=== PATIENT | male | born 1965 | race Caucasian/White ===

== ENCOUNTER 2019-02-22 02:58 | Inpatient (IN) | payer OTHER ==
[~2019-02-22] VITALS: Ht 170.2 cm; Wt 74.8 kg
--- NOTE | 2019-02-22 03:19 | NUR ---
PT BIB [facility] TO ED WITH PT C/O FEELING GENERALIZED WEAKNESS AND LOW BP. PER MEDICS, PT HAD RECENT 5UNITS LOSS OF BLOOD FROM ESOPHAGEAL VARICES AND WAS REPLACED WITH 1 UNIT AT PARSIPPANY. PER MEDICS, PT BP WAS IN 60'S AND WITH 200ML NS, INCREASED TO SYSTOLIC IN THE 70'S. PER MEDICS, PT ALSO STATING TO HAVING SHARP CHEST PAIN TO LEFT LOWER CHEST. PT A AND O X4, NO ACUTE DISTRESS NOTED, PT STATES TO 9/10 CHEST PAIN THAT BEGAN EN ROUTE IN AMBULANCE. PER MEDICS, 12 LEAD WAS NEGATIVE.
--- NOTE | 2019-02-22 03:48 | NUR ---
PER PT , PT IS STATING HE IS BEGINNING TO FEEL "BLOOD IN HIS SYSTEM" LIKE HE IS BLEEDING.
[2019-02-22 03:59] LABS: CALCIUM 7.4 mg/dL (8.5-10.1); CARBON DIOXIDE 21.4 mmol/L (21-32); CHLORIDE SERUM 108 mmol/L (98-107); CREATININE SERUM 1.2 mg/dL (0.7-1.3); GFR1 > 60 mL/min; GLUCOSE SERUM 224 mg/dL (74-106); POTASSIUM SERUM 4.2 mmol/L (3.5-5.1); SODIUM SERUM 140 mmol/L (136-145)
[2019-02-22 04:03] LABS: PLATELET COUNT 105 x10^3mcL (130-400); RED CELL DISTRIBUTION WIDTH 18.2 % (11.5-14.5)
[2019-02-22 04:04] LABS: ALKALINE PHOSPHATASE 218 U/L (46-116); ALT/SGPT 31 U/L (16-63); AST/SGOT 39 U/L (15-37); BILIRUBIN TOTAL 0.7 mg/dL (0.20-1.00)
[2019-02-22 04:07] LABS: ALBUMIN 2.2 g/dL (3.4-5.0); TOTAL PROTEIN, SERUM 5.1 g/dL (6.4-8.2)
--- NOTE | 2019-02-22 04:15 | NUR ---
STARTED EMERGENCY BLOOD TRANSFUION WITH O-NEG BLOOD. PER DR. ALMONTE, INFUSED OVER 1 HOUR SINCE PT BP HAS IMPROVED. PT REMAINS PALE AND DRY AT THIS TIME.
--- NOTE | 2019-02-22 04:43 | NUR ---
PT IS MORE PINK IN SKIN COLOR AT THIS TIME, DENIES HAVING CHEST PAIN. PT CONTINUES TO SPEAK IN CLEAR SENTENCES. AT PT SIDE.
--- NOTE | 2019-02-22 04:59 | NUR ---
PER , PT HAD TESTOSTERONE INJECTION AT 1PM YESTERDAY AND IS INSULIN DEPENDENT DIABETIC.
[2019-02-22 05:13] LABS: ovalocyte/elliptocyte 1+; rbc morphology (normal/abnorm) ABNORMAL (NORMAL)
--- NOTE | 2019-02-22 05:49 | NUR ---
PT PROVIDED WITH BED PEREIRA PER PT REQUEST. DARK RED BLOOD NOTED IN BED PEREIRA, APPROX 20-30CC IN BED PEREIRA.
[2019-02-22] MEDS ORDERED: MASON NATURAL1000 IU (05:52)
[2019-02-22] MEDS ORDERED: CLARITIN D (05:52)
[2019-02-22] MEDS ORDERED: PHARMASSURE FO0.4 MG (05:52)
[2019-02-22] MEDS ORDERED: ALLEGRA ALLERG180 M1 (05:52)
[2019-02-22] MEDS ORDERED: PROTONIX20 MG (05:52)
[2019-02-22 06:00] LABS: CHOLESTEROL/HDL RATIO 4.7; MAGNESIUM 1.6 mg/dL (1.8-2.4)
--- NOTE | 2019-02-22 06:01 | NUR ---
PER MT, NO ICU BED AVAIL UNTIL AFTER 7AM.
[2019-02-22 06:06] LABS: T3 TOTAL 1.39 ng/mL
[2019-02-22 06:13] LABS: FREE T4 1.26 ng/dL (0.76-1.46); FREE THYROXINE INDEX 2.7 ug/dL (1.4-4.5); T4(THYROXINE) 7.3 ug/dL (4.7-13.3)
--- NOTE | 2019-02-22 06:43 | NUR ---
PT RESTING IN POSITION OF COMFORT, NO ACUTE DISTRESS NOTED, PT SKIN REMAINS PINK IN COLOR. PT STARTED ON SANDOSTATIN DRIP PER ORDER.
--- NOTE | 2019-02-22 07:24 | NUR ---
REPORT GIVEN TO RAOUL POWELL TO ASSUME CARE OF PT.
--- NOTE | 2019-02-22 07:38 | NUR ---
PT ADMITTED AT THIS TIME FROM ED. PT AWAKE, ALERT, ORIENTED X 4. ABLE TO COMMUNICATE NEEDS AND FOLLOW COMMANDS. PT DENIES PAIN AT THIS TIME, NO S/S DISTRESS NOTED. OF PT AT BEDSIDE. VS: T 97.5, HR 93, BP 93/36 (57), RR 12, SPO2 99 ON RA. BP LOW, BUT STABLE AT THIS TIME. PT SCHEDULED TO HAVE EGD THIS AM. WILL CONTINUE TO MONITOR.
--- NOTE | 2019-02-22 07:39 | NUR ---
PT TRANSFERRED TO ICU BED 3 VIA GURNEY WITH SANDOSTATIN INFUSING. PT A&OX4,NO ACUTE DISTRESS NOTED, RESP EVEN AND UNLABORED, TRANSFERRED WITH RN JENNA AND EMT PANCHO AT PT SIDE.
--- NOTE | 2019-02-22 08:46 | NUR ---
TIMEOUT FOR EGD COMPLETED AT BEDSIDE BY JACKLYN SILVEIRA. PT VITAL SIGNS STABLE, CONSENT SIGNED. EGD TO BE COMPLETED BY DR. CID. WILL CONTINUE TO MONITOR PT.
--- NOTE | 2019-02-22 09:00 | NUR ---
PT TOLERATING EGD WELL.
[2019-02-22 09:51] LABS: BASOPHIL % 0.5 % (0-2)
--- NOTE | 2019-02-22 10:30 | NUR ---
PT TOLERATED EGD WELL, DROWSY AT THIS TIME. WILL CONTINUE TO MONITOR.
[2019-02-22 10:38] LABS: PLATELET COUNT 107 x10^3mcL (130-400)
--- NOTE | 2019-02-22 10:51 | NUR ---
DR. POE MADE AWARE OF CURRENT HGB 7.8 AND HCT 23; ORDERS TO HOLD OFF ON PENDING TWO UNITS AT THIS TIME. PRIMARY RN MADE AWARE.
[2019-02-22 11:15] VITALS: BP 99/36
[2019-02-22 12:31] VITALS: BP 106/48
[2019-02-22 12:49] LABS: BASOPHIL % 0.6 % (0-2); PLATELET COUNT 77 x10^3mcL (130-400); RED CELL DISTRIBUTION WIDTH 18.5 % (11.5-14.5)
--- NOTE | 2019-02-22 12:50 | NUR ---
LAB CALLED RE: MOST RECENT HGB 6.8 AND HCT 20. WILL NOTIFY
--- NOTE | 2019-02-22 12:57 | NUR ---
DR. POE NOTIFIED OF MOST RECENT HGB OF 6.8 AND HCT OF 20.
--- NOTE | 2019-02-22 13:40 | NUR ---
1 UNIT OF PRBC'S CHECKED WITH SECOND RN AT BEDSIDE AND TRANSFUSION INITIATED. PRE-TRANSFUSION VS: T 98.1, HR 91, BP 131/55, RR 19, O2 97. PT EDUCATED ON S/S TRANSFUSION REACTION AND ADVISED TO TELL RN IF S/S ARISE. WILL CONTINUE TO MONITOR PT FOR S/S TRANSFUSION RXN.
--- NOTE | 2019-02-22 13:55 | NUR ---
IV FLUID PAUSED AT THIS TIME, PRBC'S INFUSING.
[2019-02-22 15:40] VITALS: BP 108/52
--- NOTE | 2019-02-22 16:30 | NUR ---
PRBC TRANSFUSION COMPLETE. NO S/S TRANSFUSION REACTION. NS RESTARTED AT 100 ML/HR.
[2019-02-22] MEDS ORDERED: ROBAXIN500 MG PO (18:25)
[2019-02-22 18:31] LABS: microscopic required? NO
[2019-02-22 18:35] LABS: UA SPECIFIC GRAVITY 1.015 (1.005-1.035); urine erythrocyte NEGATIVE (NEGATIVE)
[2019-02-22 18:39] LABS: PLATELET COUNT 78 x10^3mcL (130-400)
[2019-02-22 19:00] LABS: AMPHETAMINE QUAL UR NONE DETECTED (See below)
--- NOTE | 2019-02-22 19:05 | NUR ---
RECEIVED REPORT FROM ANDRE SILVEIRA. ASSUMING ALL CARE
[2019-02-22 19:23] VITALS: BP 115/54
--- NOTE | 2019-02-22 19:31 | NUR ---
RECEIVED PT LAYING IN BED. PT IS A/OX4. SPEECH IS CLEAR. ABLE TO MAKE NEEDS KNOWN/FOLLOW COMMANDS. BREATHING IS E/U ON RA. LUNGS SOUND CLEAR BILAT. SYMMETRICAL CHEST EXPANSION NOTED. S1/S2 HEART SOUNDS AUSCULTATED. CHEST WALL EQUAL AND SYMMETRICAL. DENIES ANY CP. HR 92, NIBP 115/54 MAP 74. PALPABLE PULSES X4 EXTREMITIES. SKIN IS WARM AND DRY. NO EDEMA NOTED. RAC AND LFA IV IN PLACE WITH NO S/S OF INFILTRATION NOTED. NS INFUSING @ 100 ML/HR, SANDOSTATIN GTT INFUSING @ 25 ML/HR. ABD IS DISTENDED/NONTENDER TO PALPATION. BOWEL SOUNDS ACTIVE X4 QUADRANTS. PT HAD A SMALL SOFT DARK TARRY COLORED BM, PERICARE PROVIDED. PT VOIDS FREELY VIA URINAL. NO SCROTAL EDEMA/PENILE DISCHARGE NOTED. SKIN IS INTACT. PT ABLE TO REPOSITION SELF INDEPENDENTLY. PT IS CALM AND COOPERATIVE. BED IN LOW POSITION. CALL LIGHT IN REACH. WILL CONT TO MONITOR
--- NOTE | 2019-02-22 22:15 | NUR ---
PT ASSISTED TO BSC. PT HAD A SMALL SEMI-LIQUID DARK TARRY BM, PERICARE PROVIDED. PT ASSISTED BACK IN BED AND CONNECTED TO FULL PAST DUE ACCOUNTS CLERK.
[2019-02-22] MEDS ORDERED: CARVEDILOL6.25 M1 PO (22:24)
[2019-02-22] MEDS ORDERED: LISINOPRIL10 MG PO (22:25)
[2019-02-22] MEDS ORDERED: DORZOLAMIDE HYD10 ML OP (22:26)
[2019-02-22] MEDS ORDERED: XALATAN2.5 ML OP (22:26)
[2019-02-22 23:05] VITALS: BP 117/56
--- NOTE | 2019-02-23 00:24 | NUR ---
PT HAD A MOD SIZE SEMI-LIQUID DARK TARRY BM, PERICARE PROVIDED.
[2019-02-23 00:48] LABS: BASOPHIL % 0.5 % (0-2); PLATELET COUNT 96 x10^3mcL (130-400)
[2019-02-23 03:16] VITALS: BP 110/52
--- NOTE | 2019-02-23 04:45 | NUR ---
PT IS SLEEPING, EASILY AROUSABLE. NO S/S OF ACUTE DISTRESS NOTED. WILL CONT TO MONITOR
[2019-02-23 05:48] LABS: BASOPHIL % 0.7 % (0-2)
[2019-02-23 06:07] LABS: CALCIUM 7.4 mg/dL (8.5-10.1); CARBON DIOXIDE 25.5 mmol/L (21-32); CHLORIDE SERUM 109 mmol/L (98-107); CREATININE SERUM 0.9 mg/dL (0.7-1.3); GFR1 > 60 mL/min; GLUCOSE SERUM 92 mg/dL (74-106); PLATELET COUNT 81 x10^3mcL (130-400); POTASSIUM SERUM 4.1 mmol/L (3.5-5.1); RED CELL DISTRIBUTION WIDTH 18.3 % (11.5-14.5); SODIUM SERUM 142 mmol/L (136-145)
--- NOTE | 2019-02-23 07:04 | NUR ---
REPORT GIVEN TO ANDRE SILVEIRA. ALL QUESTIONS/CONCERNS ADDRESSED. ENDORSING ALL CARE
--- NOTE | 2019-02-23 07:20 | NUR ---
PT ASSISTED WITH DISCONNECTING VITAL SIGN CORDS TO USE BSC. 1 MOD AMT BLACK TARRY STOOL.
[2019-02-23 07:48] VITALS: Ht 170.2 cm; Wt 74.8 kg
--- NOTE | 2019-02-23 08:33 | NUR ---
1 UNIT TRANSFUSION OF PRBC'S INITIATED. PRE ADMIN VS: T 98.2, HR 98, BP 131/54, RR 16, O2 96% ON RA. UNIT OF BLOOD CHECKED WITH SECOND RN AT BEDSIDE, EDUCATED PT RE: BLOOD TRANSFUSION REACTIONS AND TO NOTIFY RN OF THEM. PT VOICED UNDERSTANDING. IV FLUID PAUSED AT THIS TIME, TO BE RESTARTED UPON COMPLETION OF TRANSFUSION. WILL CONTINUE TO MONITOR PT.
[2019-02-23 08:48] VITALS: BP 131/54
--- NOTE | 2019-02-23 08:48 | NUR ---
PT TOLERATING TRANSFUSION OF PRBC'S WELL, DENIES SYMPTOMS OF TRANSFUSION REACTION & NO VISIBLE SIGNS OF REACTION. WILL CONTINUE TO MONITOR.
--- NOTE | 2019-02-23 09:20 | NUR ---
DR. FERRIS CALLED TO FOLLOW UP WITH PT. UPDATES PROVIDED, QUESTIONS ADDRESSED. DR. FERRIS REQUESTED PUTTING PT ON CLEAR LIQUID DIET AND ADDING 1G CARAFATE SUSPENSION ACHS. WILL CARRY OUT NEW ORDERS AND ASSESS PT TOLERANCE OF DIET.
--- NOTE | 2019-02-23 10:50 | NUR ---
1 UNIT PRBC'S FINISHED TRANSFUSING. POST-TRANSFUSION VS: T 98.2, HR 100, BP 129/57, RR 13, O2 95% ON RA. NO S/S REACTION, PT TOLERATED WELL.
--- NOTE | 2019-02-23 11:30 | NUR ---
DR. KUMAR AND RESIDENTS AT BEDSIDE TO ASSESS PT AND DISCUSS POC. UPDATES PROVIDED, QUESTIONS ADDRESSED. DR. KUMAR MENTIONED PT IS CANDIDATE TO TRANSFER TO [facility]. WILL CARRY OUT NEW ORDERS THEY COME.
--- NOTE | 2019-02-23 12:11 | NUR ---
PT UP TO BSC, MINIMAL ASSIST WITH VS CORDS. 1 LIQUID TARRY BM.
[2019-02-23 12:32] LABS: BASOPHIL % 0.9 % (0-2)
[2019-02-23 12:36] LABS: PLATELET COUNT 90 x10^3mcL (130-400); RED CELL DISTRIBUTION WIDTH 18.1 % (11.5-14.5)
[2019-02-23 12:49] VITALS: BP 129/57
[2019-02-23 15:55] VITALS: BP 129/56
[2019-02-23 18:22] LABS: BASOPHIL % 0.7 % (0-2); PLATELET COUNT 79 x10^3mcL (130-400)
--- NOTE | 2019-02-23 18:55 | NUR ---
PATIENT ARRIVED TO FLOOR VIA WHEELCHAIR ACCOMPANIED BY AND ICU NURSE. PATIENT SEEN AMBULATING W CANE TO BED. NO COMPLAINTS OF PAIN AT THIS TIME. WILL ENDORSE TO ONCOMING NURSE. SANDOSTATIN STILL INFUSING AT THIS TIME. INSTRUCTED ON USE OF BED CONTROLS AND CALL LIGHT. CALL LIGHT IN REACH, AT BEDSIDE.
--- NOTE | 2019-02-23 19:30 | NUR ---
RECEIVED PT FROM DAY SHIFT RN. PT AAOX4. DENIES CHILDRESS/DIZZINESS. BREATHING EVEN AND UNLABORED ON RA WITH NO SOB NOTED. TELE #1 SR WITH DEPRESSED T WAVE. HR 93. PT DENIES CHEST PAIN/PRESSURE. NO EDEMA NOTED. SCDS IN PLACE. ABD SOFT/DISTENDED. ACTIVE BOWEL SOUNDS. DENIES ABD PAIN/N/V. PER PT HE HAD ABOUT 5 LOOSE STOOL THE LAST 2 NON-BLOODY. GENERALIZED WEAKNESS. IV RAC AND IV LFA. CALL BUTTON WITHIN REACH. SAFETY PRECAUTIONS IN PLACE. AT BEDSIDE. WILL CONTINUE TO MONITOR.
[2019-02-23 20:00] VITALS: BP 120/50
[2019-02-24] VITALS (7 sets, daily range): BP systolic 119–154; BP diastolic 36–52
--- NOTE | 2019-02-24 01:22 | NUR ---
PT AWAKE. DENIES PAIN. NO SIGNS OF DISTRESS. CALL BUTTON WITHIN REACH. SAFETY PRECAUTIONS IN PLACE. WILL CONTINUE TO MONITOR.
--- NOTE | 2019-02-24 03:00 | NUR ---
ROUNDS MADE. PT RESTING. BREATHING EVEN AND UNLABORED NO SIGNS OF DISTRESS. CALL BUTTON WITHIN REACH. SAFETY PRECAUTIONS IN PLACE. WILL CONTINUE TO MONITOR.
--- NOTE | 2019-02-24 04:59 | NUR ---
PT SLEPT MOST OF THE NIGHT WITH NO SIGNS OF DISTRESS. BREATHING EVEN AND UNLABORED ON RA NO SOB NOTED. PT DENIES CHEST PAIN/PRESSURE. IV PATENT, INFUSING WELL. PT AMBULATORY WITH BRP. PER PT HAD 3 LOOSE NON-BLOODY STOOL. MEDICATED PER EMAR. PT NO ACUTE DISTRESS. CALL BUTTON WITHIN REACH. SAFETY PRECAUTIONS IN PLACE. WILL CONTINUE TO MONITOR AND ENDORSE CARE TO DAY SHIFT RN.
[2019-02-24 06:28] LABS: BASOPHIL % 0.9 % (0-2)
[2019-02-24 06:45] LABS: CALCIUM 7.6 mg/dL (8.5-10.1); CARBON DIOXIDE 24.6 mmol/L (21-32); CHLORIDE SERUM 109 mmol/L (98-107); GFR1 > 60 mL/min; GLUCOSE SERUM 114 mg/dL (74-106); MAGNESIUM 1.6 mg/dL (1.8-2.4); PHOSPHOROUS 3.3 mg/dL (2.5-4.9); POTASSIUM SERUM 3.7 mmol/L (3.5-5.1); SODIUM SERUM 142 mmol/L (136-145)
[2019-02-24 07:13] LABS: PLATELET COUNT 80 x10^3mcL (130-400); RED CELL DISTRIBUTION WIDTH 18.3 % (11.5-14.5)
--- NOTE | 2019-02-24 07:27 | NUR ---
PT RESTING. NO SIGNS OF DISTRESS. IV PATENT INFUSING WELL. CALL BUTTON WITHIN REACH. SAFETY PRECAUTIONS IN PLACE. ENDORSED CARE TO DAY SHIFT RN, ALL QUESTIONS ADDRESSED.
--- NOTE | 2019-02-24 10:12 | NUR ---
ROUNDS: DR KUMAR, RESIDENTS, PRIMARY RN, AND SALES ENABLEMENT SPECIALIST AT BEDSIDE. DR ORDERED FLUIDS AND SANDOSTATIN TO BE DC, PT TO ADVANCE TO REGULAR DIET, H/H WILL BE MONITORED AND CHECKED AT 17:00 IF H/H STAYS THE SAME OR INCREASES PT MAY BE DISCHARGED TODAY FOR GI CONSULT TOMORROW. ALSO NOTIFIED OF MAG 1.6 AND ORDERED 2G MAG IV. PT VERBALIZED UNDERSTANDING AND ALL QUESTIONS AND CONCERNS WERE ADDRESSED.
[2019-02-24] MEDS ORDERED: LEVOFLOXACIN500 M1 PO (11:46)
[2019-02-24] MEDS ORDERED: CARL PO (11:47)
[2019-02-24] MEDS ORDERED: PROTONIX40 MG PO (11:48)
[2019-02-24] MEDS ORDERED: FERROUS SULFAT325 M2 PO (11:54)
--- NOTE | 2019-02-24 11:54 | NUR ---
SPOKE WITH DR KUMAR TO REQUEST ADDITION OF IRON LAB PER PT REQUEST FOR FOLLOW UP DR BLANTON TOMORROW.
--- NOTE | 2019-02-24 13:59 | NUR ---
IN TO SEE PATIENT AND ASSESS NEEDS BEFORE GOING TO LUNCH. PAITENT RESTING COMFORTABLY IN BED WITH AT BEDSIDE. ALL NEEDS MET. WILL REASSESS AFTER LUNCH.
[2019-02-24 17:21] LABS: BASOPHIL % 0.6 % (0-2)
[2019-02-24 17:27] LABS: PLATELET COUNT 80 x10^3mcL (130-400); RED CELL DISTRIBUTION WIDTH 18.4 % (11.5-14.5)
[2019-02-24 17:47] LABS: rbc morphology (normal/abnorm) ABNORMAL (NORMAL)
--- NOTE | 2019-02-24 18:02 | NUR ---
PATIENT H/H DECREASED TO 7.6/. DR KUMAR PAGED. NOTIFIED PATIENT THAT DR WAS PAGED FOR FURTHER INSRUCTION. DR KUMAR RETUREND CALL AND STATED THAT HE CANNOT DISCHARGE THE PATIENT WITH A DECREASING H/H AND IT IS SCHEDULED TO BE RECHECKED TOMORROW. WILL NOTIFY PATIENT.
--- NOTE | 2019-02-24 19:15 | NUR ---
RECEIVED PT IN BED RESTING WITH AT BEDSIDE.. LUNG SOUNT CTA. BREATGING EVEN AND UNLABORED.DENIES ANY PAIN AT THIS TIME. SKIN INTACT. NO EDEMA NOTED TO ALL EXTREMITIES. ABDOMEN SOFT AND ROUND. SALINE LOCK TO RAC/LFA PATENT AND INTACT. BED IN LOWEST POSITION,CALL LIGHT WITHIN REACH. WILL CONTINUE TO MONITOR.
--- NOTE | 2019-02-24 19:37 | NUR ---
REPORT GIVEN TO NICHOLAS SILVEIRA. PATIENT RESTING COMFORTABLY IN BED WITH AT BEDSIDE. ALL NEEDS MET. ALL QUESTIONS AND CONCERNS ADDRESSED. ALL CARES ENDORSED.
--- NOTE | 2019-02-25 05:26 | NUR ---
PT REMAINED ASLEEP. NO SOB NOTED. NO INDICATION OF PAIN. CALL LIGHT WITHIN REACH. WILL CONTINUE TO MONITOR.
[2019-02-25 05:29] VITALS: BP 127/48
[2019-02-25 06:27] LABS: BASOPHIL % 0.4 % (0-2)
[2019-02-25 06:50] LABS: PLATELET COUNT 84 x10^3mcL (130-400); RED CELL DISTRIBUTION WIDTH 18.4 % (11.5-14.5)
--- NOTE | 2019-02-25 07:13 | NUR ---
CARE ENDORSED TO DAY NURSE JOSÉ MIGUEL.
--- NOTE | 2019-02-25 07:15 | NUR ---
RECEIVED PT. IN BED A/A/O X3. NO SOB, NO N/V NOTED. PT. DENIES ANY PAIN AT THIS TIME. IV SITE #1 NOTED TO Jerome AC. IV SITE #2 NOTED TO Chastity FA. SCD TO BLE MAINTAINED. BED IN LOW POS., CALL LIGHT WITHIN REACH. SIDE RAILS UP X3.
[2019-02-25 09:13] VITALS: BP 119/47
--- NOTE | 2019-02-25 10:44 | NUR ---
Pt. in bed resting, AAx4, skin assessment to BLE no open wounds/lesions. Charge nurse notified.
[2019-02-25 12:14] VITALS: BP 130/51
--- NOTE | 2019-02-25 13:50 | NUR ---
SPOKE WITH DR PEDROZA TO CLARIFY THE STATUS OF DC HOME. PER DR PEDROZA PATIENT TO BE DC HOME TODAY. ATTENDING NURSE JOSÉ MIGUEL MADE AWARE. PATIENTS' HERE AND INFORMED.
--- NOTE | 2019-02-25 14:25 | NUR ---
D/C HOME INSTRUCTIONS GIVEN TO PT. AND PT.'S WHO BOTH VERBALIZED UNDERSTANDING OF INSTRUCTIONS. IV H/L TO R AC AND TO L FA REMOVED. PRESCRIPTIONS GIVEN. TELE. MONITOR #1 REMOVED AND RETURNED TO TELE. MONITOR STATION.
--- NOTE | 2019-02-25 14:49 | NUR ---
PT. IS BEING DISCHARGED IN STABLE CONDITION VIA WHEELCHAIR. ALL BELONGINGS SENT HOME WITH PT. UPON DISCHARGE.
== END 2019-02-25 14:47 | disposition home or self-care (01) | DRG 280 ==
LOC: ED 02:58 → DU 05:19 → IC 05:19 → DU 02-23 18:30
PROVIDERS: Emergency Medicine; Internal Medicine; ADMIT Internal Medicine
PROC: 0D968ZX Drainage of Stomach, Via Natural or Artificial Opening Endoscopic, Diagnostic (ICD-10-PCS; 2019-02-22)
PROC: 30233N1 Transfusion of Nonautologous Red Blood Cells into Peripheral Vein, Percutaneous Approach (ICD-10-PCS; 2019-02-22)
PROC: 3E0G8GC Introduction of Other Therapeutic Substance into Upper GI, Via Natural or Artificial Opening Endoscopic (ICD-10-PCS; principal; 2019-02-22 07:30)
PROC: 0D9 Gastrointestinal System, Drainage (ICD-10-PCS; 2019-02-22 07:30)
DX: K70.30 Alcoholic cirrhosis of liver without ascites (principal); I85.11 Secondary esophageal varices with bleeding; K22.11 Ulcer of esophagus with bleeding; K76.6 Portal hypertension; D62 Acute posthemorrhagic anemia; E83.42 Hypomagnesemia; E78.5 Hyperlipidemia, unspecified; Y90.0 Blood alcohol level of less than 20 mg/100 ml; K31.89 Other diseases of stomach and duodenum; E11.9 Type 2 diabetes mellitus without complications; F10.10 Alcohol abuse, uncomplicated; I10 Essential (primary) hypertension; Z95.2 Presence of prosthetic heart valve; Z87.891 Personal history of nicotine dependence; Z79.899 Other long term (current) drug therapy
CPT/HCPCS: 43235; 82962; 83880; 84439; C9113; G0378; G0480; J0171; J1200; J1610; J1956; J2250; J2270; J2310; J2354; J3010; J3475; J3490; J7030; J7040; J7050; P9016